=== PATIENT | female | born 1960 | race Caucasian/White ===

== ENCOUNTER → 2017-01-30 | Outpatient (CLI) | payer OTHER ==
[~2017-01-30] MED LIST: AMITIZA; AUGMENTIN 875 M1 TAB PO; BACTROBAN OINT22 GM PO; DAYPRO600 M1 PO; FLEXERIL5 MG PO; HYDROCODONE BIT1 T11 PO; KEFLEX500 MG PO; LEVAQUIN750 MG PO; LEVOFLOXACIN500 MG PO; LEVOTHYROXIN0.025 MG; LOPRESSOR; MOTRIN800 MG PO; NEXIUM40 MG PO; NORFLEX100 MG PO; PYRIDIUM200 MG PO; ROBAXIN750 MG PO; THERAPEUTIC VIT1 CAP PO; TRAMADOL HCL50 MG PO; VICODIN 500 MG-1 TAB PO; VICODIN ES 7501 TAB PO; ZOFRAN4 MG PO
[2017-01-30 10:12] LABS: BILIRUBIN NEGATIVE (NEGATIVE); BLOOD 1+ (NEGATIVE); CLARITY CLEAR (CLEAR); COLOR YELLOW (YELLOW); GLUCOSE NEGATIVE (NEGATIVE); KETONE NEGATIVE (NEGATIVE); LEUKO ESTERASE 1+ (NEGATIVE); NITRITE NEGATIVE (NEGATIVE); PH 5.5 (5.0-9.0); PROTEIN NEGATIVE (NEGATIVE); UROBILINOGEN 0.2 E.U./dl (0.2-1.0)
[2017-01-30 10:27] LABS: BACTERIA 1+; MUCOUS TRACE; RBC 21-30 rbc/hpf (0-2); WBC 31-40 wbc/hpf (0-5)
== END | disposition home or self-care (01) ==
LOC: LAB 09:38
PROVIDERS: Urology
DX: R30.0 Dysuria (principal)

== ENCOUNTER → 2018-03-23 | Outpatient (CLI) | payer OTHER | END | disposition home or self-care (01) | LOC: RAD 12:14 | DX: M17.11 Unilateral primary osteoarthritis, right knee (principal) ==

== ENCOUNTER → 2019-08-13 | Outpatient (CLI) | payer OTHER ==
[2019-08-13 10:05] LABS: BASO # 0.1 10*3/uL (0.0-0.1); BASO % 0.7 % (0.0-1.0); EOS # 0.2 10*3/uL (0.0-0.4); EOS % 2.3 % (1.0-4.0); HEMATOCRIT 43.2 % (37.0-47.0); HEMOGLOBIN 13.9 g/dl (12.0-16.0); LYMPH % 26.3 % (27.0-41.0); MEAN CELL VOLUME 95.2 fl (81.0-99.0); MEAN CORPUSCULAR HGB 30.6 pg (27.0-31.0); MEAN CORPUSCULAR HGB CONC 32.2 g/dl (33.0-37.0); MEAN PLATELET VOLUME 9.9 fl (9.6-12.3); MONO # 0.5 10*3/uL (0.1-1.0); NEUT # 4.9 10*3/uL (2.3-7.9); NEUT % 64.2 % (47.0-73.0); PLATELET COUNT AUTOMATED 363 10*3/uL (130-400); RED BLOOD COUNT 4.54 10*6/uL (4.10-5.10); RED CELL DISTRI WIDTH 12.9 % (0-14.5); WHITE BLOOD COUNT 7.7 10*3/uL (4.8-10.8)
[2019-08-13 10:50] LABS: ALBUMIN 3.6 gm/dl (3.1-4.5); ALKALINE PHOSPHATASE 83 U/L (45-117); BUN 13 mg/dl (7-24); CHLORIDE 105 mmol/L (98-107); CHOLESTEROL 209 mg/dL (<200); CREATININE 0.65 mg/dL (0.55-1.02); HDL CHOLESTEROL 65 mg/dl (40-60); LDL CHOLESTEROL 126 mg/dL (9-159); POTASSIUM 4.1 mmol/L (3.5-5.1); SGOT/AST 12 IU/L (3-35); SGPT/ALT 22 U/L (12-78); SODIUM 140 mmol/L (136-145); TOTAL PROTEIN 7.6 gm/dL (6.4-8.2); TRIGLYCERIDES 90 mg/dl (<150); VLDL CHOLESTEROL 18 mg/dL (6-40)
[2019-08-14 08:08] LABS: RHEUMATOID ARTHRITIS FACTOR <10.0 IU/mL (0.0-13.9)
[2019-08-14 12:09] LABS: ANTI-DSDNA ANTIBODIES 096339 2 IU/mL (0-9); SJOGREN ANTI-SS-A <0.2 AI (0.0-0.9); SJOREN AB, ANTI-SS-B <0.2 AI (0.0-0.9)
== END | disposition home or self-care (01) ==
LOC: LAB 08:40 → RAD 09:00
PROVIDERS: Internal Medicine
DX: M85.88 Other specified disorders of bone density and structure, other site (principal); Z78.0 Asymptomatic menopausal state

== ENCOUNTER → 2020-06-29 | Outpatient (CLI) | payer OTHER ==
[2020-06-29] VITALS (9 sets, daily range): BP systolic 125–184; BP diastolic 71–94
[~2020-06-29] MED LIST changes: +NEURONTIN100 MG PO
== END | disposition home or self-care (01) ==
PROVIDERS: ATTEND Student in an Organized Health Care Education/Training Program
DX: M43.16 Spondylolisthesis, lumbar region (principal); M51.36 Other intervertebral disc degeneration, lumbar region; M47.817 Spondylosis without myelopathy or radiculopathy, lumbosacral region; M48.07 Spinal stenosis, lumbosacral region; M25.78 Osteophyte, vertebrae; M96.1 Postlaminectomy syndrome, not elsewhere classified

== ENCOUNTER → 2020-07-30 | Outpatient (CLI) | payer OTHER ==
[2020-07-30 12:52] LABS: BASO # 0.1 10*3/uL (0.0-0.1); BASO % 0.5 % (0.0-1.0); EOS # 0.2 10*3/uL (0.0-0.4); EOS % 1.9 % (1.0-4.0); LYMPH # 3.2 10*3/uL (1.3-4.4); LYMPH % 28.3 % (27.0-41.0); MEAN CELL VOLUME 91.7 fl (81.0-99.0); MEAN CORPUSCULAR HGB 29.9 pg (27.0-31.0); MEAN CORPUSCULAR HGB CONC 32.6 g/dl (33.0-37.0); MEAN PLATELET VOLUME 9.4 fl (9.6-12.3); MONO # 0.7 10*3/uL (0.1-1.0); MONO % 5.8 % (3.0-9.0); NEUT # 7.1 10*3/uL (2.3-7.9); NEUT % 63.1 % (47.0-73.0); PLATELET COUNT AUTOMATED 380 10*3/uL (130-400); RED BLOOD COUNT 4.58 10*6/uL (4.10-5.10); RED CELL DISTRI WIDTH 13.1 % (0-14.5); WHITE BLOOD COUNT 11.3 10*3/uL (4.8-10.8)
[2020-07-30 13:24] LABS: ALBUMIN 3.4 gm/dl (3.1-4.5); ALKALINE PHOSPHATASE 89 U/L (45-117); BUN 12 mg/dl (7-24); CHLORIDE 106 mmol/L (98-107); CHOLESTEROL 207 mg/dL (<200); CREATININE 0.49 mg/dL (0.55-1.02); FREE T4 0.95 ng/dl (0.76-1.46); HDL CHOLESTEROL 72 mg/dl (40-60); LDL CHOLESTEROL 102 mg/dL (9-159); SGOT/AST 15 IU/L (3-35); SGPT/ALT 22 U/L (12-78); SODIUM 141 mmol/L (136-145); TOTAL PROTEIN 7.8 gm/dL (6.4-8.2); TRIGLYCERIDES 167 mg/dl (<150); VLDL CHOLESTEROL 33 mg/dL (6-40)
[2020-07-30 13:48] LABS: VITAMIN D, 25-HYDROXY 20.6 ng/mL (30-100)
== END | disposition home or self-care (01) ==
LOC: LAB 12:28 → MAMMO 13:30
PROVIDERS: ATTEND Internal Medicine
DX: Z12.31 Encounter for screening mammogram for malignant neoplasm of breast (principal); D52.9 Folate deficiency anemia, unspecified; D51.9 Vitamin B12 deficiency anemia, unspecified; R70.0 Elevated erythrocyte sedimentation rate; R79.89 Other specified abnormal findings of blood chemistry; R53.81 Other malaise; E55.9 Vitamin D deficiency, unspecified; G83.4 Cauda equina syndrome; M06.9 Rheumatoid arthritis, unspecified

== ENCOUNTER → 2020-11-23 | Outpatient (CLI) | payer OTHER ==
[2020-11-24 10:07] LABS: HEP B CORE AB, IGM Negative (Negative); HEPATITIS B SURFACE AG Negative (Negative); HEPATITIS C VIRUS ANTIBODY <0.1 s/co (0.0-0.9)
== END | disposition home or self-care (01) ==
LOC: LAB 16:27
PROVIDERS: ATTEND Internal Medicine
DX: T14.8XXA Other injury of unspecified body region, initial encounter (principal); Z11.4 Encounter for screening for human immunodeficiency virus [HIV]; Z11.59 Encounter for screening for other viral diseases; W46.1XXA Contact with contaminated hypodermic needle, initial encounter; Y93.89 Activity, other specified; Y92.89 Other specified places as the place of occurrence of the external cause; Y99.8 Other external cause status

== ENCOUNTER 2021-02-26 11:36 | Emergency (ER) | payer OTHER ==
[~2021-02-26] VITALS: Ht 154.9 cm; Wt 128.4 kg
[2021-02-26 11:42] VITALS: BP 150/81
[2021-02-26] MEDS ORDERED: PREDNISONE20 M1 PO (12:10)
[2021-02-26] MEDS ORDERED: ZYRTEC10 M2 PO (12:10)
== END 2021-02-26 12:20 | disposition home or self-care (01) ==
LOC: ED 11:36
DX: L23.9 Allergic contact dermatitis, unspecified cause (principal); Z88.1 Allergy status to other antibiotic agents; Z79.899 Other long term (current) drug therapy; Z90.49 Acquired absence of other specified parts of digestive tract; Z98.890 Other specified postprocedural states

== ENCOUNTER 2022-08-25 14:06 | Inpatient (IN) | payer OTHER ==
[~2022-08-25] VITALS: Ht 152.4 cm; Wt 127.0 kg
[~2022-08-25 14:06] MED LIST changes: +PREDNISONE20 M1 PO; +ZYRTEC10 M2 PO
[2022-08-25 14:22] VITALS: BP 118/89
[2022-08-25 15:50] LABS: HEMATOCRIT 44.3 % (37.0-47.0); MANUAL DIFF REFLEX YES; MEAN CELL VOLUME 95.1 fl (81.0-99.0); MEAN CORPUSCULAR HGB 31.3 pg (27.0-31.0); MEAN PLATELET VOLUME 9.5 fl (9.6-12.3); PLATELET COUNT AUTOMATED 308 10*3/uL (130-400); RED BLOOD COUNT 4.66 10*6/uL (4.10-5.10); RED CELL DISTRI WIDTH 13.1 % (0-14.5); WHITE BLOOD COUNT 24.6 10*3/uL (4.8-10.8)
[2022-08-25 16:00] VITALS: BP 147/92
[2022-08-25 16:13] LABS: ALKALINE PHOSPHATASE 98 U/L (46-116); BUN 10 mg/dl (9-23); CHLORIDE 101 mmol/L (98-107); CREATININE 0.55 mg/dL (0.55-1.02); POTASSIUM 3.8 mmol/L (3.4-5.1); SGPT/ALT 17 U/L (10-49); SODIUM 135 mmol/L (136-145); TOTAL PROTEIN 7.2 gm/dL (6.0-8.0)
[2022-08-25 16:34] LABS: PLATELET SUFFICIENCY NORMAL (NORMAL); STOMATOCYTE FEW; TOTAL CELLS COUNTED 100 #CELLS
[2022-08-25] MEDS ORDERED: CELECOXIB200 M1 PO (17:41)
[2022-08-25] MEDS ORDERED: NEURONTIN300 MG PO (17:41)
[2022-08-25] MEDS ORDERED: METOPROLOL SUCC25 M2 PO (17:41)
[2022-08-25] MEDS ORDERED: ATARAX,VISTARIL10 MG PO (17:42)
[2022-08-25] MEDS ORDERED: TRAMADOL HCL50 MG PO (17:43)
[2022-08-25 19:33] VITALS: BP 135/64
[2022-08-25 21:19] VITALS: BP 152/81
[2022-08-26 07:17] LABS: HEMATOCRIT 42.3 % (37.0-47.0); MEAN CELL VOLUME 94.4 fl (81.0-99.0); MEAN CORPUSCULAR HGB CONC 32.9 g/dl (33.0-37.0); PLATELET COUNT AUTOMATED 258 10*3/uL (130-400); RED BLOOD COUNT 4.48 10*6/uL (4.10-5.10); RED CELL DISTRI WIDTH 13.2 % (0-14.5)
[2022-08-26 07:33] LABS: MANUAL DIFF REFLEX YES
[2022-08-26 07:36] LABS: BUN 8 mg/dl (9-23); CHLORIDE 104 mmol/L (98-107); CREATININE 0.49 mg/dL (0.55-1.02); POTASSIUM 3.5 mmol/L (3.4-5.1); SODIUM 140 mmol/L (136-145)
[2022-08-26 08:00] VITALS: BP 123/68
[2022-08-26 08:02] LABS: BASOPHILS 1 % (0-1); PLATELET SUFFICIENCY NORMAL (NORMAL); TOTAL CELLS COUNTED 100 #CELLS
[2022-08-26 12:00] VITALS: BP 135/70
[2022-08-26 16:00] VITALS: BP 116/62
[2022-08-26 20:00] VITALS: BP 98/53
[2022-08-27] VITALS: BP 116/59
[2022-08-27 06:06] LABS: BASO # 0.1 10*3/uL (0.0-0.1); BASO % 0.3 % (0.0-1.0); EOS % 0.1 % (1.0-4.0); HEMATOCRIT 41.7 % (37.0-47.0); LYMPH # 1.1 10*3/uL (1.3-4.4); LYMPH % 6.6 % (27.0-41.0); MEAN CELL VOLUME 93.7 fl (81.0-99.0); MEAN CORPUSCULAR HGB 31.2 pg (27.0-31.0); MEAN CORPUSCULAR HGB CONC 33.3 g/dl (33.0-37.0); MONO # 0.6 10*3/uL (0.1-1.0); MONO % 3.5 % (3.0-9.0); NEUT # 14.6 10*3/uL (2.3-7.9); NEUT % 88.8 % (47.0-73.0); PLATELET COUNT AUTOMATED 261 10*3/uL (130-400); RED BLOOD COUNT 4.45 10*6/uL (4.10-5.10); WHITE BLOOD COUNT 16.5 10*3/uL (4.8-10.8)
[2022-08-27 08:00] VITALS: BP 151/74
[2022-08-27 12:00] VITALS: BP 156/78
[2022-08-27 16:00] VITALS: BP 150/70
[2022-08-28] VITALS: BP 108/62
[2022-08-28 06:33] LABS: BASO # 0.1 10*3/uL (0.0-0.1); BASO % 0.5 % (0.0-1.0); EOS # 0.2 10*3/uL (0.0-0.4); EOS % 1.6 % (1.0-4.0); HEMATOCRIT 41.9 % (37.0-47.0); LYMPH # 1.9 10*3/uL (1.3-4.4); LYMPH % 13.5 % (27.0-41.0); MEAN CELL VOLUME 95.2 fl (81.0-99.0); MEAN CORPUSCULAR HGB 30.5 pg (27.0-31.0); MEAN PLATELET VOLUME 9.7 fl (9.6-12.3); MONO # 1.3 10*3/uL (0.1-1.0); MONO % 9.1 % (3.0-9.0); NEUT # 10.2 10*3/uL (2.3-7.9); NEUT % 74.3 % (47.0-73.0); PLATELET COUNT AUTOMATED 277 10*3/uL (130-400); RED CELL DISTRI WIDTH 13.1 % (0-14.5); WHITE BLOOD COUNT 13.7 10*3/uL (4.8-10.8)
[2022-08-28 06:52] LABS: CREATININE 1.44 mg/dL (0.55-1.02); POTASSIUM 3.7 mmol/L (3.4-5.1)
[2022-08-28 08:00] VITALS: BP 143/82
[2022-08-28 12:00] VITALS: BP 150/79
[2022-08-28 16:00] VITALS: BP 131/68
[2022-08-28 20:00] VITALS: BP 131/72
[2022-08-29] VITALS: BP 144/70
[2022-08-29 07:36] VITALS: BP 132/72
[2022-08-29 12:00] VITALS: BP 121/60
[2022-08-29 16:00] VITALS: BP 142/85
[2022-08-29 20:00] VITALS: BP 93/66
[2022-08-30] VITALS: BP 125/57
[2022-08-30 06:35] LABS: HEMATOCRIT 40.9 % (37.0-47.0); MEAN CELL VOLUME 92.3 fl (81.0-99.0); MEAN CORPUSCULAR HGB 30.5 pg (27.0-31.0); MEAN PLATELET VOLUME 9.9 fl (9.6-12.3); PLATELET COUNT AUTOMATED 321 10*3/uL (130-400); RED BLOOD COUNT 4.43 10*6/uL (4.10-5.10); RED CELL DISTRI WIDTH 13.3 % (0-14.5); WHITE BLOOD COUNT 11.6 10*3/uL (4.8-10.8)
[2022-08-30 06:36] LABS: MANUAL DIFF REFLEX YES
[2022-08-30 07:26] LABS: ATYPICAL LYMPHS 2 % (0-0); TOTAL CELLS COUNTED 100 #CELLS
[2022-08-30 07:27] LABS: PLATELET SUFFICIENCY NORMAL (NORMAL); POLYCHROMASIA SLIGHT; TOXIC GRANULATION SLIGHT
[2022-08-30 08:00] VITALS: BP 148/83
[2022-08-30] MEDS ORDERED: VIBRAMYCIN100 MG PO (08:05)
[2022-08-30] MEDS ORDERED: Cleocin150 MG PO (08:05)
== END 2022-08-30 11:02 | disposition home or self-care (01) | DRG 872 ==
LOC: ED 14:06 → 4E 17:19 → EDHOLD 17:19 → 4E 21:26
PROVIDERS: Internal Medicine; Physician Assistant; ADMIT Internal Medicine; ATTEND Internal Medicine
DX: A41.9 Sepsis, unspecified organism (principal); L03.115 Cellulitis of right lower limb; G83.4 Cauda equina syndrome; Z68.43 Body mass index [BMI] 50.0-59.9, adult; M47.896 Other spondylosis, lumbar region; E66.01 Morbid (severe) obesity due to excess calories; G89.29 Other chronic pain; M54.50 Low back pain, unspecified; F41.1 Generalized anxiety disorder; I10 Essential (primary) hypertension; S80.862A Insect bite (nonvenomous), left lower leg, initial encounter; W57.XXXA Bitten or stung by nonvenomous insect and other nonvenomous arthropods, initial encounter; Z88.1 Allergy status to other antibiotic agents; Y93.89 Activity, other specified; Y92.89 Other specified places as the place of occurrence of the external cause; Z98.891 History of uterine scar from previous surgery; Y99.8 Other external cause status

== ENCOUNTER → 2023-03-22 | Outpatient (CLI) | payer OTHER ==
[~2023-03-22] MED LIST changes: +ATARAX,VISTARIL10 MG PO; +CELECOXIB200 M1 PO; +Cleocin150 MG PO; +METOPROLOL SUCC25 M2 PO; +NEURONTIN300 MG PO; +VIBRAMYCIN100 MG PO
== END | disposition home or self-care (01) ==
LOC: MRI 03-13 13:00
PROVIDERS: ATTEND Podiatrist Foot & Ankle Surgery
DX: S93.324A Dislocation of tarsometatarsal joint of right foot, initial encounter (principal); M71.22 Synovial cyst of popliteal space [Baker], left knee; M19.071 Primary osteoarthritis, right ankle and foot; R60.0 Localized edema; I70.90 Unspecified atherosclerosis; X58.XXXA Exposure to other specified factors, initial encounter; Y93.89 Activity, other specified; Y92.89 Other specified places as the place of occurrence of the external cause; Y99.8 Other external cause status

== ENCOUNTER → 2023-09-14 | Outpatient (CLI) | payer OTHER | END | disposition home or self-care (01) | LOC: MAMMO 07:10 | PROVIDERS: ATTEND Internal Medicine | DX: Z12.31 Encounter for screening mammogram for malignant neoplasm of breast (principal) ==

== ENCOUNTER 2023-09-24 14:14 | Emergency (ER) | payer OTHER ==
[~2023-09-24] VITALS: Ht 152.4 cm; Wt 129.3 kg
[2023-09-24 14:34] VITALS: BP 156/61
[2023-09-24] MEDS ORDERED: SEPTDS PO (15:21)
== END 2023-09-24 15:41 | disposition home or self-care (01) ==
LOC: ED 14:14
DX: L03.031 Cellulitis of right toe (principal); I10 Essential (primary) hypertension; M79.89 Other specified soft tissue disorders; Z88.1 Allergy status to other antibiotic agents; Z79.899 Other long term (current) drug therapy; Z79.2 Long term (current) use of antibiotics; Z98.890 Other specified postprocedural states; Z90.49 Acquired absence of other specified parts of digestive tract

== ENCOUNTER → 2023-09-28 | Outpatient (CLI) | payer OTHER ==
[~2023-09-28] MED LIST changes: +SEPTDS PO
== END | disposition home or self-care (01) ==
LOC: WOUNDCARE 01:55
PROVIDERS: ATTEND Nurse Practitioner Family
DX: S91.301A Unspecified open wound, right foot, initial encounter (principal); L97.512 Non-pressure chronic ulcer of other part of right foot with fat layer exposed; I73.9 Peripheral vascular disease, unspecified; I87.2 Venous insufficiency (chronic) (peripheral); G90.09 Other idiopathic peripheral autonomic neuropathy; X58.XXXA Exposure to other specified factors, initial encounter; Y93.89 Activity, other specified; Y92.89 Other specified places as the place of occurrence of the external cause; Y99.8 Other external cause status

== ENCOUNTER → 2023-10-02 | Outpatient (CLI) | payer OTHER ==
[2023-10-02 12:05] LABS: BASO # 0.1 10*3/uL (0.0-0.1); BASO % 0.6 % (0.0-1.0); EOS # 0.2 10*3/uL (0.0-0.4); EOS % 2.5 % (1.0-4.0); HEMATOCRIT 45.2 % (37.0-47.0); LYMPH # 2.1 10*3/uL (1.3-4.4); LYMPH % 27.3 % (27.0-41.0); MEAN CELL VOLUME 93.8 fl (81.0-99.0); MEAN CORPUSCULAR HGB 29.7 pg (27.0-31.0); MEAN CORPUSCULAR HGB CONC 31.6 g/dl (33.0-37.0); MEAN PLATELET VOLUME 9.3 fl (9.6-12.3); MONO # 0.4 10*3/uL (0.1-1.0); MONO % 5.7 % (3.0-9.0); NEUT # 4.8 10*3/uL (2.3-7.9); NEUT % 62.6 % (47.0-73.0); PLATELET COUNT AUTOMATED 385 10*3/uL (130-400); RED BLOOD COUNT 4.82 10*6/uL (4.10-5.10); RED CELL DISTRI WIDTH 13.3 % (0-14.5); WHITE BLOOD COUNT 7.7 10*3/uL (4.8-10.8)
[2023-10-02 12:32] LABS: ALKALINE PHOSPHATASE 88 U/L (46-116); BUN 15 mg/dl (9-23); CHLORIDE 105 mmol/L (98-107); CHOLESTEROL 214 mg/dL (<200); LDL CHOLESTEROL 121 mg/dL (9-159); POTASSIUM 4.1 mmol/L (3.4-5.1); SGPT/ALT 16 U/L (5-49); TRIGLYCERIDES 173 mg/dl (<150)
== END | disposition home or self-care (01) ==
LOC: LAB 11:05
PROVIDERS: Internal Medicine; ATTEND Nurse Practitioner Family
DX: M19.071 Primary osteoarthritis, right ankle and foot (principal); Z13.0 Encounter for screening for diseases of the blood and blood-forming organs and certain disorders involving the immune mechanism; Z13.21 Encounter for screening for nutritional disorder; Z13.1 Encounter for screening for diabetes mellitus; Z13.220 Encounter for screening for lipoid disorders; Z13.228 Encounter for screening for other metabolic disorders; Z13.29 Encounter for screening for other suspected endocrine disorder; Z13.6 Encounter for screening for cardiovascular disorders; Z13.89 Encounter for screening for other disorder; Z13.9 Encounter for screening, unspecified; L03.115 Cellulitis of right lower limb; M79.89 Other specified soft tissue disorders; I10 Essential (primary) hypertension

== ENCOUNTER → 2023-10-04 | Outpatient (CLI) | payer OTHER | END | disposition home or self-care (01) | LOC: US 02:39 | PROVIDERS: ATTEND Internal Medicine | DX: M79.604 Pain in right leg (principal); I10 Essential (primary) hypertension; R20.0 Anesthesia of skin ==

== ENCOUNTER → 2023-10-05 | Outpatient (CLI) | payer OTHER | END | disposition home or self-care (01) | LOC: WOUNDCARE 01:33 | PROVIDERS: ATTEND Nurse Practitioner Family | DX: S91.301D Unspecified open wound, right foot, subsequent encounter (principal); L97.512 Non-pressure chronic ulcer of other part of right foot with fat layer exposed; I73.9 Peripheral vascular disease, unspecified; I87.2 Venous insufficiency (chronic) (peripheral); G83.4 Cauda equina syndrome; G90.09 Other idiopathic peripheral autonomic neuropathy; Z90.49 Acquired absence of other specified parts of digestive tract; X58.XXXD Exposure to other specified factors, subsequent encounter ==

== ENCOUNTER → 2023-10-10 | Outpatient (CLI) | payer OTHER | END | disposition home or self-care (01) | LOC: WOUNDCARE 09:27 | PROVIDERS: ATTEND Nurse Practitioner Family | DX: S91.301D Unspecified open wound, right foot, subsequent encounter (principal); L97.512 Non-pressure chronic ulcer of other part of right foot with fat layer exposed; I73.9 Peripheral vascular disease, unspecified; I87.2 Venous insufficiency (chronic) (peripheral); G83.4 Cauda equina syndrome; G90.9 Disorder of the autonomic nervous system, unspecified; X58.XXXD Exposure to other specified factors, subsequent encounter ==

== ENCOUNTER → 2023-10-17 | Outpatient (CLI) | payer OTHER ==
[~2023-10-17] MED LIST changes: +BIOCLEANSE PO; +CYCLOBENZAPRINE5 M3 PO; +ESTRADIOL42.5 GM V
== END | disposition home or self-care (01) ==
LOC: WOUNDCARE 01:55
PROVIDERS: ATTEND Nurse Practitioner Family
DX: S91.301D Unspecified open wound, right foot, subsequent encounter (principal); L97.512 Non-pressure chronic ulcer of other part of right foot with fat layer exposed; I73.9 Peripheral vascular disease, unspecified; I87.2 Venous insufficiency (chronic) (peripheral); G83.4 Cauda equina syndrome; G90.09 Other idiopathic peripheral autonomic neuropathy; Z90.49 Acquired absence of other specified parts of digestive tract; X58.XXXD Exposure to other specified factors, subsequent encounter

== ENCOUNTER → 2023-10-19 | Outpatient (CLI) | payer OTHER ==
[~2023-10-19] MED LIST changes: -BIOCLEANSE PO
== END | disposition home or self-care (01) ==
LOC: NM 01:50 → US 09:00 → NM 09:00
PROVIDERS: ATTEND Internal Medicine
DX: R60.0 Localized edema (principal)

== ENCOUNTER 2023-10-23 10:48 | Inpatient (IN) | payer OTHER ==
[~2023-10-23] VITALS: Ht 152.4 cm; Wt 128.8 kg
[2023-10-23] VITALS: BP 143/74
[~2023-10-23 10:48] MED LIST changes: -CYCLOBENZAPRINE5 M3 PO; -ESTRADIOL42.5 GM V
[2023-10-23 11:05] VITALS: BP 137/72
[2023-10-23] MEDS ORDERED: CYCLOBENZAPRINE5 M3 PO (11:11)
[2023-10-23] MEDS ORDERED: ESTRADIOL42.5 GM V (11:13)
[2023-10-23] MEDS ORDERED: Piperacillin Sodium/Tazobact 50 ML IV ONE (11:50)
[2023-10-23] MEDS ORDERED: Vancomycin Hydrochloride 250 ML IV ONE (11:50)
[2023-10-23 12:13] LABS: BASO % 0.6 % (0.0-1.0); EOS # 0.2 10*3/uL (0.0-0.4); EOS % 2.2 % (1.0-4.0); LYMPH % 29.6 % (27.0-41.0); MEAN CELL VOLUME 94.1 fl (81.0-99.0); MEAN CORPUSCULAR HGB 29.5 pg (27.0-31.0); MEAN CORPUSCULAR HGB CONC 31.4 g/dl (33.0-37.0); MEAN PLATELET VOLUME 9.3 fl (9.6-12.3); MONO # 0.5 10*3/uL (0.1-1.0); MONO % 7.6 % (3.0-9.0); NEUT % 59.4 % (47.0-73.0); PLATELET COUNT AUTOMATED 338 10*3/uL (130-400); RED BLOOD COUNT 4.57 10*6/uL (4.10-5.10); RED CELL DISTRI WIDTH 13.5 % (0-14.5); WHITE BLOOD COUNT 6.7 10*3/uL (4.8-10.8)
[2023-10-23 12:28] LABS: ACT PARTIAL THROMBO TIME 27.9 SECONDS (20.0-32.1)
[2023-10-23 12:35] LABS: ALKALINE PHOSPHATASE 72 U/L (46-116); BUN 16 mg/dl (9-23); CHLORIDE 106 mmol/L (98-107); LIPASE 30 U/L (12-53); POTASSIUM 4.2 mmol/L (3.4-5.1); SGPT/ALT 16 U/L (5-49)
[2023-10-23] MEDS ORDERED: hydrOXYzine hydrochloride 10 MG TAB PO PRN (14:25)
[2023-10-23 15:47] VITALS: BP 157/92
[2023-10-23] MEDS ORDERED: Ceftriaxone Sodium 1 GM,IV 1 EA in SYRINGE INFUSION 10 ML IV SCH (18:00)
[2023-10-23] MEDS ORDERED: GABAPENTIN 300 MG CAP PO SCH (18:00)
[2023-10-23 21:00] VITALS: BP 165/96
[2023-10-23] MEDS ORDERED: CELECOXIB 200 MG CAP PO SCH (22:00)
[2023-10-23] MEDS ORDERED: Cyclobenzaprine Hydrochlorid 10 MG TAB PO SCH (22:00)
[2023-10-24] VITALS: BP 143/74
[2023-10-24 08:00] VITALS: BP 143/60
[2023-10-24] MEDS ORDERED: BIOCLEANSE PO (08:03)
[2023-10-24] MEDS ORDERED: GADOTERATE MEGLUMINE 5 MMOL/10 ML VIAL IV ONE (09:17)
[2023-10-24] MEDS ORDERED: GADOTERATE MEGLUMINE 10 MMOL/20 ML VIAL IV ONE (09:18)
[2023-10-24] MEDS ORDERED: MED. FROM HOME 1 EACH EA PO SCH (10:00)
[2023-10-24] MEDS ORDERED: CELECOXIB 200 MG CAP PO SCH (10:00)
[2023-10-24] MEDS ORDERED: METOPROLOL SUCCINATE XR 25 MG TAB PO SCH (10:00)
[2023-10-24 12:00] VITALS: BP 147/69
[2023-10-24] MEDS ORDERED: HEPARIN SODIUM 300 UNITS/3 ML SYR IV SCH (15:50)
[2023-10-24] MEDS ORDERED: SODIUM CHLORIDE 0.9% 10 ML SYR IV PRN (15:50)
[2023-10-24 16:00] VITALS: BP 147/54
[2023-10-24] MEDS ORDERED: Piperacillin Sodium/Tazobact 50 ML IV SCH (18:00)
[2023-10-24 20:00] VITALS: BP 148/84
[2023-10-25] VITALS: BP 154/80
[2023-10-25 08:00] VITALS: BP 146/48
[2023-10-25] MEDS ORDERED: ESTRADIOL 42.5 GM TUBE V SCH (10:00)
[2023-10-25] MEDS ORDERED: MUPIROCIN 15 GM TUBE T SCH (10:00)
[2023-10-25 12:00] VITALS: BP 155/84
[2023-10-25 20:00] VITALS: BP 138/83
[2023-10-26] VITALS (8 sets, daily range): BP systolic 127–151; BP diastolic 52–91
[2023-10-26] MEDS ORDERED: VIBRA-TAB100 MG PO (08:53)
[2023-10-26] MEDS ORDERED: SODIUM CHLORIDE 0.9% 1,000 ML IV ONE (09:21)
[2023-10-26] MEDS ORDERED: GABAPENTIN 300 MG CAP PO SCH (15:12)
[2023-10-26] MEDS ORDERED: Lidocaine Hydrochloride 2% 10 ML AMP IM ONE (16:59)
[2023-10-26] MEDS ORDERED: Midazolam Hydrochloride 2 MG/2 ML VIAL IV ONE (16:59)
[2023-10-26] MEDS ORDERED: PROPOFOL 200 MG/20 ML VIAL IV ONE (16:59)
== END 2023-10-26 18:28 | disposition home health service (06) | DRG 478 ==
LOC: ED 10:48 → 4E 13:32 → EDHOLD 13:32 → 4E 19:36
PROVIDERS: Emergency Medicine; ADMIT Internal Medicine; ATTEND Internal Medicine
PROC: 0QBQ0ZX Excision of Right Toe Phalanx, Open Approach, Diagnostic (ICD-10-PCS; principal; 2023-10-26)
DX: M86.8X8 Other osteomyelitis, other site (principal); G83.4 Cauda equina syndrome; I10 Essential (primary) hypertension; G62.9 Polyneuropathy, unspecified; S91.101A Unspecified open wound of right great toe without damage to nail, initial encounter; G89.29 Other chronic pain; Z88.1 Allergy status to other antibiotic agents; Z88.8 Allergy status to other drugs, medicaments and biological substances; Z98.891 History of uterine scar from previous surgery; X58.XXXA Exposure to other specified factors, initial encounter; Y93.89 Activity, other specified; Y92.89 Other specified places as the place of occurrence of the external cause; Y99.8 Other external cause status

== ENCOUNTER → 2024-01-24 | Outpatient (CLI) | payer OTHER ==
[~2024-01-24] MED LIST changes: +BIOCLEANSE PO; +CYCLOBENZAPRINE5 M3 PO; +ESTRADIOL42.5 GM V; +VIBRA-TAB100 MG PO
== END | disposition home or self-care (01) ==
LOC: ORTHO 09:16
PROVIDERS: ATTEND Orthopaedic Surgery
DX: M19.071 Primary osteoarthritis, right ankle and foot (principal); M86.171 Other acute osteomyelitis, right ankle and foot

== ENCOUNTER → 2024-04-25 | Outpatient (CLI) | payer OTHER | END | disposition home or self-care (01) | LOC: MRI 00:27 | PROVIDERS: ATTEND Internal Medicine | DX: M19.021 Primary osteoarthritis, right elbow (principal); M25.421 Effusion, right elbow; M25.511 Pain in right shoulder; M77.8 Other enthesopathies, not elsewhere classified ==